=== PATIENT | male | born 1970 | race Two or more races ===

== ENCOUNTER 2024-10-26 11:53 | Inpatient (IN) | payer OTHER ==
[~2024-10-26] VITALS: Ht 180.3 cm; Wt 108.7 kg
--- NOTE | 2024-10-26 12:17 | ED.PDOC ---
GI ASSESSMENT HPI Comments PMHx: HTN, HLD PSHx: Denies. Social hx: Ex smoker. No current alcohol, tobacco, or illicit drug use. Meds: Amlodipine Allergies: NKDA. Vitals T: 98.0F. RR: 18 HR: 120. BP: 212/147. O2: 96 on RA. Pt states his BP is always elevated. Young HPI: Poor Historian. 54-year-old male presents with four day history of epigastric pain nonradiating and left lower quadrant pain nonradiating. Patient has associated nausea and increasing urinary frequency. No alleviating or precipitating factors. Past Medcial History: Past Surgical History: Upper and lower endoscopies. REVIEW OF SYSTEMS: CONSTITUTIONAL: Denies acute: fever, diaphoresis, chills, HEAD: Denies acute: headache, photophobia Eyes: Denies acute: Double vision, vision loss, eye pain, eye discharge. EARS: Denies acute: tinnitus, hearing loss, ear discharge, ear pain, THROAT: Denies acute: sore throat, swelling, difficulty swallowing , pain with swallowing, change in voice. NECK: Denies acute: neck pain, neck swelling, stiff neck. HEART: Denies acute : chest pain, palpitations, LUNGS: Denies acute: SOB, wheezing, cough, hemoptysis ABDOMEN: Denies acute: Vomiting, diarrhea, melena , hematemesis, hematochezia SKIN: Denies acute: rash, redness, lesions, itchiness. EXTREMITIES: Denies acute: calf pain, numbness, tingling, weakness, denies pain in extremity. Denies acute: Low back pain. Neuro: Denies acute: focal neurological deficit, motor or sensory focal neurological deficit, tremors, seizure like activity, confusion, dizziness, change in mental status, loss of bowel or bladder function, cauda equina like symptoms. : Denies acute: dysuria, hematuria, flank pain, PSYCH: Denies acute: hallucination, suicidal ideation, homicidal ideation. PHYSICAL EXAM: General: no acute distress, awake and alert. Head: normocephalic, atraumatic. Neck: supple, trachea is midline, no swelling. Throat: Normal phonation. Eyes:, no erythema, no purulent discharge, no proptosis, no icterus. Heart: regular tachycardia, no significant murmur appreciated. Lungs: no apparent respiratory distress, Able to speak in full sentences. No wheezing, no rhonchi, no crackles. No stridors Clear to auscultation bilaterally. Abdomen: Epigastric and left lower quadrant tender to palpation, non distended, soft, no guarding, no rebound, + bowel sounds. Neuro: Awake, Alert, oriented to name, self, situation, follows commands GCS=15. Speech is normal. Skin: no petechia, no purpura, no cyanosis, non-pale, not jaundice. Lower extremities: --no - Pitting edema no deformity, no focal swelling, no calf TTP. Makes eye contact. moves all four extremities. Face: no apparent facial droop. Ambulating in the ED independently. Time Seen by MD: 12:14 Primary Care Provider: ANA Reviewed Notes: Nurses Notes, Medications, Allergies Allergies: Coded Allergies: NO KNOWN ALLERGIES (Unverified , 10/26/24) Information Source: Patient Mode of Arrival: Ambulatory Timing: Weeks Duration: Intermittent Quality: Sharp Vomitus: None Stool: Normal Severity: Mild Recent: None Recent Hx of: None Pain Location: Diffuse Modifying Factors: Nothing Associated sign and symptoms: Nausea, Abdominal Pain, Other Past Medical History PAST MEDICAL HISTORY: High Lipids, HTN Surgical History: Denies all surgeries Family History Family History: Reviewed,noncontributory to illness Social History Smoker: Quit Less Than 1 Year, Cigarettes Alcohol: Denies ETOH Use Drugs: Denies Drug Use Lives In: Home Was a procedure done? Was a procedure done?: No GI differential Dx Differential Diagnosis: Other (DDX include but not limited to diverticulitis, colitis, gastroenteritis, acute abdomen, SBO, enteritis, constipation, volvulus, appendicitis, Gallbladder disease, choledocolithiasis, ascending cholangitis, pancreatitis, intraAbdominal mass/neoplasm, hepatitis, UTI, pylonephritis, kidney stone, aneurysm, dissection, Inflammatory bowel disease, gastroparesis, ischemic bowel.) X-Ray, Labs, Meds, VS Vital Signs Date Time Temp Pulse Resp B/P (MAP) Pulse Ox O2 Delivery O2 Flow Rate FiO2 10/26/24 16:02 110 10/26/24 16:00 98.3 95 17 191/120 (143) 96 98.3 10/26/24 12:53 118 20 138/118 (125) 96 10/26/24 12:48 114 16 92 Room Air* 0 21 10/26/24 12:30 98.0 120 18 212/147 (168) 96 Lab Test 10/26/24 16:08 10/26/24 15:59 10/26/24 15:27 10/26/24 14:10 Range/Units Serum Osmolality 304 H 278-298 mOsm/kg Phosphorus Level 3.2 2.4-5.1 mg/dL Magnesium Level 2.0 1.6-2.6 mg/dL Beta-Hydroxybutyric Acid 3.441 H < 0.4 mmol/L POC Glucose 349 H 342 H 70-106 mg/dl Urine Color Light-yellow Yellow Urine Clarity Clear Clear Urine pH 5.0 5.0-9.0 Urine Specific [place] 1.033 1.001-1.035 Urine Protein 1+ H Negative Urine Ketones 3+ H Negative Urine Blood Trace H Negative /uL Urine Nitrite Negative Negative Urine Bilirubin Negative Negative Urine Urobilinogen Normal Negative mg/dL Urine Leukocyte Esterase Negative Negative /uL Urine RBC <1 0 - 3 /hpf Urine WBC 1 0 - 3 /hpf Urine Squamous Epithelial Cells None seen <5 /hpf Urine Bacteria None seen None Seen /hpf Urine Hyaline Casts Few 0 - 2 /lpf Urine Glucose 4+ H Normal mg/dL Urine Opiates Screen Neg NEGATIVE Urine Fentanyl Screen Neg NEGATIVE Urine Barbiturates Screen Neg NEGATIVE Urine Phencyclidine Screen Neg NEGATIVE Urine Amphetamines Screen Neg NEGATIVE Urine Benzodiazepines Screen Neg NEGATIVE Urine Cocaine Screen Neg NEGATIVE Urine Cannabinoids Screen Pos NEGATIVE Test 10/26/24 12:52 10/26/24 12:42 10/26/24 12:26 10/26/24 12:25 Range/Units White Blood Count 14.8 H 4.4-10.8 10^3/uL Red Blood Count 5.88 4.5-5.90 10^6/uL Hemoglobin 16.6 13.5-17.5 g/dL Hematocrit 49.2 41.0-53.0 % Mean Corpuscular Volume 83.8 80.0-100.0 fL Mean Corpuscular Hemoglobin 28.3 28.0-32.0 pg Mean Corpuscular Hemoglobin Concent 33.8 32.0-36.0 g/dL Red Cell Distribution Width 14.4 H 11.8-14.3 % Platelet Count 382 140-450 10^3/uL Mean Platelet Volume 8.9 6.9-10.8 fL Neutrophils (%) (Auto) 71.9 37.0-80.0 % Lymphocytes (%) (Auto) 20.8 10.0-50.0 % Monocytes (%) (Auto) 5.9 0.0-12.0 % Eosinophils (%) (Auto) 0.8 0.0-7.0 % Basophils (%) (Auto) 0.6 0.0-2.0 % Neutrophils # (Auto) 10.7 H 1.6-8.6 10 ^3/uL Lymphocytes # (Auto) 3.1 0.4-5.4 10 ^3/uL Monocytes # (Auto) 0.9 0-1.3 10 ^3/uL Eosinophils # (Auto) 0.1 0-0.8 10 ^3/uL Basophils # (Auto) 0.1 0-0.2 10 ^3/uL Nucleated Red Blood Cells 0.1 % Sodium Level 132 L 136-145 mmol/L Potassium Level 5.2 H 3.5-5.1 mmol/L Chloride Level 100 98-107 mmol/L Carbon Dioxide Level 15 L 20-31 mmol/L Anion Gap 17 H 5-15 Blood Urea Nitrogen 27 H 9-23 mg/dL Creatinine 1.47 H 0.700-1.30 mg/dL Glomerular Filtration Rate Calc 56 >90 mL/min BUN/Creatinine Ratio 18.4 10.0-20.0 Serum Glucose 441 *H 74-106 mg/dL Lactic Acid Level 1.8 0.4-2.0 mmol/L Calcium Level 10.4 8.7-10.4 mg/dL Magnesium Level 2.0 1.6-2.6 mg/dL Total Bilirubin 0.8 0.2-1.0 mg/dL Aspartate Amino Transferase (AST) 19 13-40 U/L Alanine Aminotransferase (ALT) 36 7-40 U/L Alkaline Phosphatase 98 46-116 U/L Troponin I High Sensitivity 8 </=54 ng/L Total Protein 7.6 5.7-8.2 g/dL Albumin 5.0 H 3.2-4.8 g/dL Lipase 39 12-53 U/L Beta-Hydroxybutyric Acid 4.467 H < 0.4 mmol/L Blood Gas Specimen Type Arterial Blood Gas Sample Site Right radial Blood Gas Patient Temperature 37.0 Arterial Blood Date Drawn [id number] Arterial Blood pH 7.388 7.350-7.450 Arterial Blood Partial Pressure CO2 22.3 L 35.0-48.0 mmHg Arterial Blood Partial Pressure O2 86.9 83.0-108.0 mmHg Arterial Blood HCO3 13.1 L 21.0-28.0 mmol/L Arterial Blood Oxygen Saturation 96.4 94.0-98.0 % Arterial Blood Base Excess -9.1 L -2.0-3.0 mmol/L Arterial Blood Oxyhemoglobin 95.5 94.0-98.0 % Arterial Blood Carboxyhemoglobin 0.3 L 0.5-1.5 % Arterial Blood Methemoglobin 0.6 0.0-1.5 % Heath Test Yes Blood Gas Total Hemoglobin 17.70 H 13.5-17.5 g/dL Blood Gas Modality Room air FiO2 % 21.0 POC Glucose 483 *H 509 *H 70-106 mg/dl Current Medications Medications (Trade) Dose Ordered Sig/Naga Route Start Time Stop Time Status Last Admin Sodium Chloride 1,000 ml @ 1,000 mls/hr Q1H ONCE IV 10/26/24 12:30 10/26/24 13:30 DC 10/26/24 12:30 Ondansetron HCl (Zofran) 8 mg ONCE ONCE IV 10/26/24 12:30 10/26/24 13:26 DC 10/26/24 12:30 Sodium Chloride 1,000 ml @ 1,000 mls/hr Q1H ONCE IV 10/26/24 14:00 10/26/24 15:14 DC 10/26/24 14:00 Insulin Human Regular (InsuLIN R) 5 units ONCE ONCE IV 10/26/24 14:00 10/26/24 15:14 DC 10/26/24 15:28 Sodium Chloride 1,000 ml @ 500 mls/hr Q2H IV 10/26/24 15:15 10/26/24 19:14 DC 10/26/24 17:19 Insulin Human (Reg)/Sodium Chloride 100 ml @ 0.5 mls/hr Q24H IV 10/26/24 15:15 10/26/24 16:00 Sodium Bicarbonate 50 ml ONCE ONCE IV 10/26/24 15:15 10/26/24 15:16 DC 10/26/24 15:[address] [address] Ph: [phone] DIAGNOSTIC IMAGING Diagnostic Imaging Report : [id number] Signed PATIENT: AMINAH CASTILLO ACCT: [id number] UNIT: [id number] : 1970 LOC: ER ROOM / BED: / AGE / SEX: 54 / M ADM STATUS: REG ER SERVICE 1217 ORDERING PHYSICIAN: SRINATH SERRANO DO PROCEDURE(s): ABPL - CT AB PEL WO CON-NO ORAL OR IV REASON: epig pain, N/ LLQ pain ORDER NUMBER(s): [id number], ACCESSION NUMBER(s): [id number] CT abdomen and pelvis without contrast INDICATION: epig pain, N/ LLQ pain TECHNIQUE: Serial axial images were performed through the abdomen and pelvis and then reformatted in the sagittal and coronal plane. All CT scans at this medical facility are performed using dose modulation techniques as appropriate to a performed exam including the following: Automated exposure control was utilized; adjustment of the MA and/or KvP according to patient size; and use of iterative reconstruction technique. FINDINGS: Lung bases are clear. Liver and spleen are normal in size without focal mass. 3 mm nonobstructive left renal calculus. No masses or enlargement of the adrenal glands or pancreas. No biliary dilatation. No gallstones. No distention of bowel loops to suggest mechanical obstruction of bowel. There is sigmoid diverticulosis without diverticulitis. The appendix is normal in appearance. No free fluid. There is calcification in the guidry of the abdominal aorta and iliac arteries Within the pelvis, bladder is smooth walled without stones. No abnormal masses or fluid collections. No hernia sacs. IMPRESSION: 1. 3 mm nonobstructive left renal calculus. 2. Sigmoid diverticulosis without signs of diverticulitis. No evidence of obstruction. Computed Tomographic Radiation Dosimetry Report: Total CTDI vol = 20 mGy Total DLP = 1047 mGy-cm Low dose protocols were performed. ATED BY: ARIAS MCCLAIN MD DICTATED DATE/TIME: 10/26/241318 SIGNED BY: ARIAS MCCLAIN MD SIGNED DATE/TIME: 10/26/241318 CC: Time of 1ST Reevaluation: 12:44 Reevaluation 1ST: Unchanged Time of 2ND Reevaluation: 21:14 Reevaluation 2ND: Improved Patient Education/Counseling: Diagnosis, Treatment Family Education/Counseling: No Family Present Comments Patient presented with the above HPI.---abdominal pain---workup was initiated. patient was found with the above mentioned diagnosis. Patient was given: DKA protocol initiated. Labetalol/nitroglycerin for blood pressure control. Patient ED course and VS have been stabilized. Patient has been reassessed in the ED and remained in a stable condition. Pertinent incidental findings were discussed with the patient and/or family. Patient/family voices understanding and is agreeable with plan. Patient has been observed in the ED adequate length of time to insure improvement/stability. patient was admitted to the medicine team for further evaluation and treatment of their presentation. All the reports of any imaging studies that were ordered by myself were reviewed by myself. Departure 1 Departure Time of Disposition: 15:02 Impression: Primary Impression: DKA (diabetic ketoacidosis) Additional Impressions: Hypertension Abdominal pain Disposition: ADMITTED INPATIENT Admit to: [facility] Condition: Guarded Discharged With: Self Critical Care Note Critical Care Time?: Yes (45 min-critical care time only) Heart Score Heart Score: Heart Score Response (Comments) Value History N/A 0 EKG N/A 0 Age N/A 0 Risk Factors N/A 0 Troponin N/A 0 Total 0 I personally scribed for SRINATH SERRANO DO ([email or web address]) on 10/26/24 at 12:17. Electronically submitted by Sona Gerardo ([employer]). I personally scribed for SRINATH SERRANO DO ([email or web address]) on 10/26/24 at 12:24. E lectronically submitted by Sona Gerardo ([employer]). I personally scribed for SRINATH SERRANO DO ([email or web address]) on 10/26/24 at 13:19. Electronically submitted by Sona Gerardo ([employer]). I personally scribed for SRINATH SERRANO DO ([email or web address]) on 10/26/24 at 13:21. Electronically submitted by Sona Gerardo ([employer]). I personally scribed for SRINATH SERRANO DO ([email or web address]) on 10/26/24 at 13:59. Electronically submitted by Sona Gerardo ([email or web address]). SRINATH SERRANO DO Oct 26, 2024 12:17
[2024-10-26] MEDS: SODIUM CHLORIDE 0.9% 1,000 ML IV ONE ×2 (12:30→14:00)
[2024-10-26] MEDS: ONDANSETRON HCL 4 MG/2 ML VIAL IV ONE (12:30)
[2024-10-26 12:47] LABS: Base Excess -9.1 mmol/L (-2.0-3.0)
[2024-10-26 12:48] VITALS: PULSE 114; RESP 16; O2SAT 92
[2024-10-26] MEDS: ONDANSETRON HCL 4 MG/2 ML VIAL ONE ×2 (13:04)
[2024-10-26 13:13] LABS: Basophils # (auto) 0.1 10 ^3/uL (0-0.2); Basophils % (auto) 0.6 % (0.0-2.0); Eosinophils # (auto) 0.1 10 ^3/uL (0-0.8); Eosinophils % (auto) 0.8 % (0.0-7.0); Hematocrit 49.2 % (41.0-53.0); Hemoglobin 16.6 g/dL (13.5-17.5); Lymphocytes # (auto) 3.1 10 ^3/uL (0.4-5.4); Lymphocytes % (auto) 20.8 % (10.0-50.0); Mean Corpuscular Hemoglobin 28.3 pg (28.0-32.0); Mean Corpuscular Hgb Conc. 33.8 g/dL (32.0-36.0); Mean Corpuscular Volume 83.8 fL (80.0-100.0); Monocytes # (auto) 0.9 10 ^3/uL (0-1.3); Monocytes % (auto) 5.9 % (0.0-12.0); Neutrophils # (auto) 10.7 10 ^3/uL (1.6-8.6); Neutrophils % (auto) 71.9 % (37.0-80.0); Nucleated Red Blood Cells % 0.1 %; Platelet Count (auto) 382 10^3/uL (140-450); Red Blood Cells 5.88 10^6/uL (4.5-5.90); Red Cell Distribution Width 14.4 % (11.8-14.3); White Blood Cell 14.8 10^3/uL (4.4-10.8)
--- NOTE | 2024-10-26 13:21 | DVH ---
CT abdomen and pelvis without contrast INDICATION: epig pain, N/ LLQ pain TECHNIQUE: Serial axial images were performed through the abdomen and pelvis and then reformatted in the sagittal and coronal plane. All CT scans at this medical facility are performed using dose modulation techniques as appropriate t o a performed exam including the following: Automated exposure control was utilized; adjustment of the MA and/or KvP according to patient size; a nd use of iterative reconstruction technique. FINDINGS: Lung bases are clear. Liver and spleen are normal in size without focal mass. 3 mm nonobstructive left renal calculus. No masses or enlargement of the adrenal glands or pancreas. No biliary dilatation. No gallstones. No distention of bowel loops to suggest mechanical obstruction of bowel. There is sigmoid diverticulo sis without diverticulitis. The appendix is normal in appearance. No free fluid. There is calcification in the guidry of the abdominal aorta and iliac arteries Within the pelvis, bladder is smooth walled without stones. No abnormal masses or fluid collections. No hernia sacs. IMPRESSION: 1. 3 mm nonobstructive left renal calculus. 2. Sigmoid diverticulosis without signs of diverticulitis. No evidence of obstruction. Computed Tomographic Radiation Dosimetry Report: Total CTDI vol = 20 mGy Total DLP = 1047 mGy-cm Low dose protocols were performed.
[2024-10-26 13:31] LABS: Alanine Aminotransferase 36 U/L (7-40); Alkaline Phosphatase 98 U/L (46-116); Anion Gap 17 (5-15); Aspartate Aminotransferase 19 U/L (13-40); BUN/Creatinine Ratio 18.4 (10.0-20.0); Bilirubin, Total 0.8 mg/dL (0.2-1.0); Blood Urea Nitrogen 27 mg/dL (9-23); Calcium 10.4 mg/dL (8.7-10.4); Carbon Dioxide 15 mmol/L (20-31); Chloride 100 mmol/L (98-107); Lipase 39 U/L (12-53); Potassium 5.2 mmol/L (3.5-5.1); Sodium 132 mmol/L (136-145); Total Protein 7.6 g/dL (5.7-8.2)
[2024-10-26 14:12] LABS: Urine Bacteria None Seen /hpf (None Seen)
[2024-10-26 14:12] LABS: Glucose 441 mg/dL (74-106)
[2024-10-26 14:31] LABS: Urine Blood TRACE /uL (Negative); Urine Clarity Clear (Clear); Urine Color Light-Yellow (Yellow); Urine Hyaline Cast FEW /lpf (0 - 2); Urine Protein, UAD 1+ (Negative); Urine Specific Gravity 1.033 (1.001-1.035); Urine Urobilinogen Normal (Negative); Urine WBC 1 /hpf (0 - 3)
[2024-10-26 14:36] LABS: Amphetamine Screen, Urine Neg (NEGATIVE); Benzodiazephine Screen, Urine Neg (NEGATIVE)
[2024-10-26 14:37] LABS: Barbiturate Scree,Urine Neg (NEGATIVE); Cocaine Screen, Urine Neg (NEGATIVE)
[2024-10-26 14:38] LABS: Cannabinoid Screen, Urine Pos (NEGATIVE); Opiate Scree,Urine Neg (NEGATIVE); Phencyclidine Screen, Urine Neg (NEGATIVE)
[2024-10-26] MEDS: SODIUM BICARB 8.4% 50Meq/50ml SYR Vial IV ONE (15:15)
[2024-10-26] MEDS: SODIUM CHLORIDE 0.9% 1,000 ML IV SCH ×3 (15:15→19:20)
[2024-10-26] MEDS ORDERED: DEXTROSE (50%) 50ML SYRG IV PRN (15:15)
[2024-10-26] MEDS: InsuLIN REG 1unit/0.01ml Soln (100units/ml) IV ONE (15:28)
[2024-10-26] MEDS: NITROGLYCERIN 0.4 MG SL TAB SL ONE (15:28)
[2024-10-26] MEDS: INSULIN DRIP 100 UNIT/100ML 100 ML IV SCH (16:00)
[2024-10-26] MEDS ORDERED: DOCUSATE SOD 100 MG CAP PO PRN (16:30)
[2024-10-26] MEDS ORDERED: MORPHINE SULFATE INJ 2 MG/ml SYRG IV PRN (16:30)
[2024-10-26] MEDS ORDERED: ACETAMINOPHEN 325 MG TAB PO PRN (16:30)
[2024-10-26] MEDS ORDERED: MAALOX PLUS or MAALOX 30 ML PO PRN (16:30)
[2024-10-26] MEDS ORDERED: HYDROcodone-ACET 5/325MG TAB PO PRN (16:30)
[2024-10-26] MEDS ORDERED: LORazepam 0.5 MG TAB PO PRN (16:30)
[2024-10-26] MEDS ORDERED: TEMAZEPAM 15 MG CAP PO PRN (16:30)
--- NOTE | 2024-10-26 16:32 | DVHHP2 ---
History of Present Illness Reason for Visit: Abdominal pain History of Present Illness 54-year-old obese patient with a past medical history stated unconfirmed patient had no complaints and stated that the last few days he has been having severe abdominal pain no stated history of diabetes but came into the ED for evaluation of continued multiple symptoms including weakness blurry vision excessive thirst high frequency of urination and complaints of severe abdominal pain that is been going on persistently patient states no history of knowing that he has any medical problems other than today as of now during evaluation his glucose was greater than 500 patient will be evaluated and admitted and managed for acute new onset diabetes with noted anion gap DKA Endocrine: Diabetes Review of Systems Constitutional: Yes: Weakness; No: Fever, Chills, Sweats, Malaise, Other Eyes: No: Pain, Vision change, Conjunctivae inflammation, Eyelid inflammation, Other, Redness ENT: No: Ear pain, Ear discharge, Nose pain, Nose discharge, Nose congestion, Mouth pain, Mouth swelling, Throat pain, Throat swelling, Other Respiratory: No: Cough, Dry, Shortness of breath, SOB with excertion, Wheezing, Hemoptysis, Pleuritic Pain, Sputum, Wheezing, Other Cardiovascular: Palpitations; No: Chest Pain, Orthopnea, Paroxysmal Noc. Dyspnea, Edema, Lt Headedness, Other Gastrointestinal: Nausea, Vomiting, Abdominal Pain; No: Diarrhea, Constipation, Melena, Hematochezia, Other Genitourinary: No Dysuria, No Frequency, No Incontinence, No Hematuria, No Retention, No Other Musculoskeletal: No: other, neck pain, shoulder pain, arm pain, back pain, hand pain, leg pain, foot pain Skin: No: Rash, Lesions, Jaundice, Bruising, Other Neurological: Weakness; No: Numbness, Incoordination, Change in speech, Confusion, Seizures, Other Allergies: Coded Allergies: NO KNOWN ALLERGIES (Unverified , 10/26/24) Medications Current Medications Medications Dose Ordered Sig/Naga Route Start Time Stop Time Status Last Admin Dose Admin Sodium Chloride 1,000 ml @ 500 mls/hr Q2H IV 10/26/24 15:15 10/26/24 19:14 10/26/24 15:15 500 MLS/HR Sodium Chloride 1,000 ml @ 250 mls/hr Q4H IV 10/26/24 19:15 10/26/24 21:14 Insulin Human (Reg)/Sodium Chloride 100 ml @ 0.5 mls/hr Q24H IV 10/26/24 15:15 10/26/24 16:00 4 MLS/HR Dextrose 50 ml UD PRN IV 10/26/24 15:15 Diagnostic Test (Pha) 1 strip Q90MIN 10/26/24 16:30 Exam Vital Signs Vital Signs Date Time Temp Pulse Resp B/P (MAP) Pulse Ox O2 Delivery O2 Flow Rate FiO2 10/26/24 12:53 118 20 138/118 (125) 96 10/26/24 12:48 Room Air* 0 21 10/26/24 12:30 98.0 General Appearance: Alert, Oriented X3, moderate distress HEENT: Atraumatic, PERRLA Respiratory: Clear to auscultation, Normal air movement Cardiovascular: Regular rate, Normal S1, Normal S2 Abdominal: Normal bowel sounds, Soft, No tenderness Extremities: No clubbing, No cyanosis, No edema Skin: No breakdown, No significant lesion Neuro: Normal gait, Normal speech Psych/Mental Status: Mood NL Labs/Xrays Labs Test 10/26/24 16:08 10/26/24 15:59 10/26/24 14:10 10/26/24 12:52 Range/Units POC Glucose 349 H 70-106 mg/dl Urine Color Light-yellow Yellow Urine Clarity Clear Clear Urine pH 5.0 5.0-9.0 Urine Specific [place] 1.033 1.001-1.035 Urine Protein 1+ H Negative Urine Ketones 3+ H Negative Urine Blood Trace H Negative /uL Urine Nitrite Negative Negative Urine Bilirubin Negative Negative Urine Urobilinogen Normal Negative mg/dL Urine Leukocyte Esterase Negative Negative /uL Urine RBC <1 0 - 3 /hpf Urine WBC 1 0 - 3 /hpf Urine Squamous Epithelial Cells None seen <5 /hpf Urine Bacteria None seen None Seen /hpf Urine Hyaline Casts Few 0 - 2 /lpf Urine Glucose 4+ H Normal mg/dL Urine Opiates Screen Neg NEGATIVE Urine Fentanyl Screen Neg NEGATIVE Urine Barbiturates Screen Neg NEGATIVE Urine Phencyclidine Screen Neg NEGATIVE Urine Amphetamines Screen Neg NEGATIVE Urine Benzodiazepines Screen Neg NEGATIVE Urine Cocaine Screen Neg NEGATIVE Urine Cannabinoids Screen Pos NEGATIVE White Blood Count 14.8 H 4.4-10.8 10^3/uL Red Blood Count 5.88 4.5-5.90 10^6/uL Hemoglobin 16.6 13.5-17.5 g/dL Hematocrit 49.2 41.0-53.0 % Mean Corpuscular Volume 83.8 80.0-100.0 fL Mean Corpuscular Hemoglobin 28.3 28.0-32.0 pg Mean Corpuscular Hemoglobin Concent 33.8 32.0-36.0 g/dL Red Cell Distribution Width 14.4 H 11.8-14.3 % Platelet Count 382 140-450 10^3/uL Mean Platelet Volume 8.9 6.9-10.8 fL Neutrophils (%) (Auto) 71.9 37.0-80.0 % Lymphocytes (%) (Auto) 20.8 10.0-50.0 % Monocytes (%) (Auto) 5.9 0.0-12.0 % Eosinophils (%) (Auto) 0.8 0.0-7.0 % Basophils (%) (Auto) 0.6 0.0-2.0 % Neutrophils # (Auto) 10.7 H 1.6-8.6 10 ^3/uL Lymphocytes # (Auto) 3.1 0.4-5.4 10 ^3/uL Monocytes # (Auto) 0.9 0-1.3 10 ^3/uL Eosinophils # (Auto) 0.1 0-0.8 10 ^3/uL Basophils # (Auto) 0.1 0-0.2 10 ^3/uL Nucleated Red Blood Cells 0.1 % Sodium Level 132 L 136-145 mmol/L Potassium Level 5.2 H 3.5-5.1 mmol/L Chloride Level 100 98-107 mmol/L Carbon Dioxide Level 15 L 20-31 mmol/L Anion Gap 17 H 5-15 Blood Urea Nitrogen 27 H 9-23 mg/dL Creatinine 1.47 H 0.700-1.30 mg/dL Glomerular Filtration Rate Calc 56 >90 mL/min BUN/Creatinine Ratio 18.4 10.0-20.0 Serum Glucose 441 *H 74-106 mg/dL Lactic Acid Level 1.8 0.4-2.0 mmol/L Calcium Level 10.4 8.7-10.4 mg/dL Total Bilirubin 0.8 0.2-1.0 mg/dL Aspartate Amino Transferase (AST) 19 13-40 U/L Alanine Aminotransferase (ALT) 36 7-40 U/L Alkaline Phosphatase 98 46-116 U/L Troponin I High Sensitivity 8 </=54 ng/L Total Protein 7.6 5.7-8.2 g/dL Albumin 5.0 H 3.2-4.8 g/dL Lipase 39 12-53 U/L Test 10/26/24 12:42 Range/Units Blood Gas Specimen Type Arterial Blood Gas Sample Site Right radial Blood Gas Patient Temperature 37.0 Arterial Blood Date Drawn [id number] Arterial Blood pH 7.388 7.350-7.450 Arterial Blood Partial Pressure CO2 22.3 L 35.0-48.0 mmHg Arterial Blood Partial Pressure O2 86.9 83.0-108.0 mmHg Arterial Blood HCO3 13.1 L 21.0-28.0 mmol/L Arterial Blood Oxygen Saturation 96.4 94.0-98.0 % Arterial Blood Base Excess -9.1 L -2.0-3.0 mmol/L Arterial Blood Oxyhemoglobin 95.5 94.0-98.0 % Arterial Blood Carboxyhemoglobin 0.3 L 0.5-1.5 % Arterial Blood Methemoglobin 0.6 0.0-1.5 % Heath Test Yes Blood Gas Total Hemoglobin 17.70 H 13.5-17.5 g/dL Blood Gas Modality Room air FiO2 % 21.0 Assessment/Plan Assessment/Plan Admit to step-down unit DKA Patient with new onset diabetes Complaints of weakness Hyperglycemia glucose greater than 500 Anion gap positive Patient started on insulin sliding scale insulin algorithmic protocol and drip Acutely monitor labs with plans for anion gap closure Convert to long-acting and basal insulin once gap closed Aggressive IV hydration Flush system No acute signs of infection noted at this point in time We will follow up with a UA no acute signs of bacteria noted no acute signs of respiratory infection noted CCT 34 minutes Plan discussed with: Patient My Orders Orders - DELFINO PRECIADO MD Procedure Category Date Status Time Admit ADMIT 10/26/24 Verified 16:23 Code Status CODE 10/26/24 Verified 16:23 Vital Signs [facility] 10/26/24 Verified 16:23 Review Orders With [place] 10/26/24 Verified Adm 16:23 Consistent DIET 10/26/24 Verified Carb(Ccho)Diabetes Dinner Sodium Chloride 0.9% PHA 10/26/24 Verified 16:30 Lorazepam Tablet PHA 10/26/24 Verified (Ativan Tablet) 16:30 Alum & Mag PHA 10/26/24 Verified Hydrox-Simethicone 16:30 Docusate Sodium PHA 10/26/24 Verified Capsule (Colace 16:30 Acetaminophen Tablet PHA 10/26/24 Verified (Tylenol Tablet) 16:30 Temazepam (Restoril) PHA 10/26/24 Verified 16:30 Notify Md Of Changes [facility] 10/26/24 Verified From Base 16:23 Advance Directive [place] 10/26/24 Verified 16:23 Basic Metabolic Panel LAB 10/27/24 Verified 04:00 Complete Blood Count LAB 10/27/24 Verified 04:00 Patient Condition ORDERS 10/26/24 Verified 16:23 Allergies [facility] 10/26/24 Verified 16:23 Hydrocodone-Acet PHA 10/26/24 Verified 5/325mg Tab ([place] 16:30 Ondansetron Hcl [facility] 10/26/24 Verified (Zofran) 16:30 Morphine 2mg Iv Q4hprn PHA 10/26/24 Verified 16:30 Notify Md Of Changes [facility] 10/26/24 Verified From Base 16:23 [employer]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
[2024-10-26] MEDS: ACCU-CHEK COMFORT CURVE STRIP VI SCH (16:36)
[2024-10-26 16:59] LABS: Phosphorus 3.2 mg/dL (2.4-5.1)
[2024-10-26 17:09] VITALS: PULSE 77; RESP 17; O2SAT 94
[2024-10-26] MEDS: LABETALOL HCL 20 MG/4 ML VL IV ONE ×2 (17:16)
[2024-10-26] MEDS: ONDANSETRON HCL 4 MG/2 ML VIAL IV PRN (17:21)
[2024-10-27 03:45] LABS: Potassium 3.5 mmol/L (3.5-5.1); Sodium 139 mmol/L (136-145)
[2024-10-27 03:46] LABS: Anion Gap 7 (5-15); Calcium 9.2 mg/dL (8.7-10.4); Carbon Dioxide 22 mmol/L (20-31)
[2024-10-27 03:51] LABS: BUN/Creatinine Ratio 18.8 (10.0-20.0); Blood Urea Nitrogen 18 mg/dL (9-23)
[2024-10-27 04:22] LABS: Chloride 110 mmol/L (98-107); Glucose 164 mg/dL (74-106)
[2024-10-27 04:26] LABS: Basophils # (auto) 0.1 10 ^3/uL (0-0.2); Basophils % (auto) 1.1 % (0.0-2.0); Eosinophils # (auto) 0.3 10 ^3/uL (0-0.8); Eosinophils % (auto) 2.7 % (0.0-7.0); Hematocrit 42.8 % (41.0-53.0); Hemoglobin 14.5 g/dL (13.5-17.5); Lymphocytes # (auto) 2.7 10 ^3/uL (0.4-5.4); Lymphocytes % (auto) 26.6 % (10.0-50.0); Mean Corpuscular Hemoglobin 28.2 pg (28.0-32.0); Monocytes # (auto) 0.7 10 ^3/uL (0-1.3); Neutrophils # (auto) 6.4 10 ^3/uL (1.6-8.6); Neutrophils % (auto) 62.6 % (37.0-80.0); Nucleated Red Blood Cells % 0.1 %; Platelet Count (auto) 290 10^3/uL (140-450); Red Blood Cells 5.16 10^6/uL (4.5-5.90); White Blood Cell 10.3 10^3/uL (4.4-10.8)
[2024-10-27 07:40] VITALS: PULSE 65; RESP 12; O2SAT 96
[2024-10-27] MEDS ORDERED: DEXTROSE (50%) 50ML SYRG IV PRN (12:45)
[2024-10-27 13:23] LABS: Triglycerides 169 mg/dL (< 150)
[2024-10-27 13:24] LABS: LDL Cholesterol 161 mg/dL (< 100)
[2024-10-27 13:25] LABS: Cholesterol 217 mg/dL (< 200); HDL Cholesterol 36 mg/dL (40-59)
[2024-10-27] MEDS: FAMOTIDINE 20 MG TAB PO ONE (13:32)
[2024-10-27] MEDS: LOSARTAN POTASSIUM 25 MG TAB PO ONE (13:32)
[2024-10-27] MEDS: InsuLIN REG 1unit/0.01ml Soln (100units/ml) SC SCH (17:00)
[2024-10-27] MEDS: ACCU-CHEK COMFORT CURVE STRIP VI SCH (17:00)
[2024-10-27 17:17] VITALS: BP 134/79; PULSE 116; RESP 20; TEMP 99.5; O2SAT 93
[2024-10-27 17:24] VITALS: BP 177/104; PULSE 74; RESP 20; TEMP 98.3; O2SAT 93
[2024-10-27] MEDS ORDERED: hydrALAZINE HCL 20 MG/ML VL IV PRN (19:00)
[2024-10-27 20:45] VITALS: BP 121/92; PULSE 89; RESP 19; TEMP 90; O2SAT 93
[2024-10-27 21:21] VITALS: BP 121/92; PULSE 89; RESP 18; TEMP 98.6; O2SAT 95
--- NOTE | 2024-10-27 21:53 | DVHPN2 ---
Assessment/Plan Assessment/Plan Progress note Subjective 54 yo M admitted for new onset diabetes. Objective Physical exam Alert, oriented x3 Obese PERRLA No JVD Clear breath sounds bilaterally S1-S2 regular rate and rhythm no murmur Abdomen soft nontender, no organomegaly Moving all four extremities No lower extremity edema Lab hyperglycemia ketonuria low bicarb elevated anion gap normal pH A1C 10 hyperlipidemia high potassium EKG NSR Imaging CTAP with diverticulitis Assessment and plan Not in DKA New onset DM likely type 2 Metabolic syndrome Obesity Hypertension Starvation ketosis hyperkalemia resolved start insulin basal bolus start high intensity statin, high ASCVD score resume amlodipine, start ARB avoid IV anti hypertensive 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 will need insulin, glucometer, po meds on discharge will need pulm referral for sleep study on discharge Replete electrolytes Diet diabetic DVT prophylaxis ambulatory 15 minutes spent with education regarding lifestyle modification Plan discussed with: Patient My Orders Orders - IMMANUEL GHOTRA MD Procedure Category Date Status Time Amlodipine Tablet PHA 10/28/24 In Process (Norvasc Tablet) 10:00 Losartan Tablet PHA 10/28/24 In Process (Cozaar Tablet) 10:00 Famotidine Tablet PHA 10/28/24 In Process (Pepcid Tablet) 10:00 Insulin Lantus PHA 10/27/24 In Process (Glargine) (Lantus) 22:00 Glucose Blood PHA 10/27/24 In Process (Accu-Chek Comfort 17:00 Insulin R (Human) PHA 10/27/24 In Process (Insulin R) 17:00 Dextrose 50% Syringe PHA 10/27/24 In Process 12:45 Transfer Orders XFER 10/27/24 Transmitted 12:37 Date of Service: Oct 27, 2024 Billing Provider: IMMANUEL GHOTRA MD Common Visit Codes: [id number] INP/OBS CARE(HIGH) Secondary Visit Codes: [id number] COUNSELING IND IMMANUEL GHOTRA MD Oct 27, 2024 21:53
[2024-10-27] MEDS ORDERED: INSULIN LANTUS (GLARGINE) 1 /0.01ml (100units/ml) SC SCH (22:00)
[2024-10-27 22:36] LABS: Chloride 106 mmol/L (98-107); Potassium 4.1 mmol/L (3.5-5.1); Sodium 135 mmol/L (136-145)
[2024-10-27 22:37] LABS: Anion Gap 7 (5-15); Carbon Dioxide 22 mmol/L (20-31)
[2024-10-27 22:38] LABS: Calcium 9.4 mg/dL (8.7-10.4)
[2024-10-27 22:43] LABS: Blood Urea Nitrogen 18 mg/dL (9-23)
[2024-10-27 22:44] LABS: Glucose 317 mg/dL (74-106)
[2024-10-27] MEDS: ATORVASTATIN 20 MG TAB PO SCH (22:58)
[2024-10-27] MEDS: INSULIN LANTUS (GLARGINE) 1 /0.01ml (100units/ml) SC SCH (23:04)
[2024-10-27 23:31] LABS: BUN/Creatinine Ratio 14.6 (10.0-20.0)
[2024-10-27] MEDS ORDERED: AMLO1TAB22 PO (23:43)
[2024-10-28 01:00] VITALS: BP_SYST 142; BP_SYST 153; BP_DIAS 59; BP_DIAS 75; PULSE 55; RESP 19; TEMP 98; O2SAT 97
[2024-10-28 05:00] VITALS: BP 130/71; PULSE 57; RESP 20; TEMP 97.8; O2SAT 96
[2024-10-28 09:00] VITALS: BP 169/98; PULSE 61; RESP 20; TEMP 97.9; O2SAT 93
[2024-10-28] MEDS: FAMOTIDINE 20 MG TAB PO SCH (10:07)
[2024-10-28] MEDS: LOSARTAN POTASSIUM 25 MG TAB PO SCH (10:07)
[2024-10-28] MEDS: amLODIPine BESYLATE 5 MG TAB PO SCH (10:08)
[2024-10-28 13:00] VITALS: BP 176/100; PULSE 69; RESP 18; TEMP 98.3; O2SAT 96
[2024-10-28] MEDS: InsuLIN REG 1unit/0.01ml Soln (100units/ml) SC SCH (14:05)
[2024-10-28] MEDS: LOSARTAN POTASSIUM 25 MG TAB PO ONE (16:24)
[2024-10-28] MEDS ORDERED: hydroCHLOROthiazide 25 MG TAB PO ONE (16:30)
[2024-10-28 17:00] VITALS: BP 155/90; PULSE 77; RESP 20; TEMP 97.7; O2SAT 95
[2024-10-28 21:00] VITALS: BP 133/73; PULSE 68; RESP 18; TEMP 98.1; O2SAT 97
[2024-10-28] MEDS ORDERED: INSULIN LANTUS (GLARGINE) 1 /0.01ml (100units/ml) SC SCH (22:00)
[2024-10-28] MEDS: INSULIN LANTUS (GLARGINE) 1 /0.01ml (100units/ml) SC SCH (22:40)
[2024-10-28] MEDS: INSULIN LISPRO (HUMAN) 100 UNITS/ML ML SC ONE (23:15)
[2024-10-29 05:00] VITALS: BP 129/57; PULSE 56; RESP 17; TEMP 97.8; O2SAT 94
[2024-10-29 06:22] LABS: Basophils # (auto) 0.1 10 ^3/uL (0-0.2); Basophils % (auto) 0.7 % (0.0-2.0); Eosinophils # (auto) 0.2 10 ^3/uL (0-0.8); Eosinophils % (auto) 2.5 % (0.0-7.0); Hematocrit 43.1 % (41.0-53.0); Hemoglobin 14.7 g/dL (13.5-17.5); Lymphocytes % (auto) 24.3 % (10.0-50.0); Mean Corpuscular Hemoglobin 28.5 pg (28.0-32.0); Mean Corpuscular Volume 83.7 fL (80.0-100.0); Monocytes # (auto) 0.7 10 ^3/uL (0-1.3); Monocytes % (auto) 8.9 % (0.0-12.0); Neutrophils # (auto) 5.3 10 ^3/uL (1.6-8.6); Neutrophils % (auto) 63.6 % (37.0-80.0); Nucleated Red Blood Cells % 0.1 %; Platelet Count (auto) 242 10^3/uL (140-450); Red Blood Cells 5.14 10^6/uL (4.5-5.90); Red Cell Distribution Width 14.3 % (11.8-14.3); White Blood Cell 8.3 10^3/uL (4.4-10.8)
[2024-10-29 06:38] LABS: Chloride 105 mmol/L (98-107); Potassium 3.8 mmol/L (3.5-5.1); Sodium 137 mmol/L (136-145)
[2024-10-29 06:39] LABS: Anion Gap 9 (5-15); Calcium 9.7 mg/dL (8.7-10.4); Carbon Dioxide 23 mmol/L (20-31)
[2024-10-29 06:44] LABS: BUN/Creatinine Ratio 10.8 (10.0-20.0); Blood Urea Nitrogen 10 mg/dL (9-23)
[2024-10-29 06:47] LABS: Glucose 222 mg/dL (74-106)
[2024-10-29 09:00] VITALS: BP 164/119; PULSE 71; RESP 17; TEMP 97.9; O2SAT 94
--- NOTE | 2024-10-29 09:00 | DVHPN2 ---
Assessment/Plan Assessment/Plan Progress note Subjective 54 yo M admitted for new onset diabetes. adjusted insulin basal and started on metforimn. adjusted BP meds Objective Physical exam Alert, oriented x3 Obese PERRLA No JVD Clear breath sounds bilaterally S1-S2 regular rate and rhythm no murmur Abdomen soft nontender, no organomegaly Moving all four extremities No lower extremity edema Lab hyperglycemia ketonuria low bicarb elevated anion gap normal pH A1C 10 hyperlipidemia high potassium EKG NSR Imaging CTAP with diverticulitis Assessment and plan Not in DKA New onset DM likely type 2 Metabolic syndrome Obesity Hypertension Starvation ketosis hyperkalemia resolved start insulin basal bolus start high intensity statin, high ASCVD score resume amlodipine, start ARB avoid IV 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, 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, po meds on discharge will need pulm referral for sleep study on discharge Replete electrolytes Diet diabetic DVT prophylaxis ambulatory 15 minutes spent with education regarding lifestyle modification Plan discussed with: Patient My Orders Orders - IMMANUEL GHOTRA MD Procedure Category Date Status Time *Rn Hotel Service Manager REFER 10/28/24 Transmitted Referral 12:43 Insulin Lantus PHA 10/28/24 In Process (Glargine) (Lantus) 22:00 Losartan Tablet PHA 10/29/24 In Process (Cozaar Tablet) 10:00 Hydrochlorothiazide PHA 10/29/24 In Process Tablet (Hydrochlorot 10:00 Metformin PHA 10/29/24 Logged Hydrochloride 08:45 Date of Service: Oct 28, 2024 Billing Provider: IMMANUEL GHOTRA MD Common Visit Codes: [id number] INP/OBS CARE(HIGH) IMMANUEL GHOTRA MD Oct 29, 2024 09:00
[2024-10-29] MEDS ORDERED: AMLO1TAB23 PO (09:09)
[2024-10-29] MEDS ORDERED: ATOR40TA52 PO (09:09)
[2024-10-29] MEDS ORDERED: INSU1.2I SC (09:09)
[2024-10-29] MEDS ORDERED: FAMO-12 PO (09:09)
[2024-10-29] MEDS ORDERED: LANC-347 XX (09:09)
[2024-10-29] MEDS ORDERED: METF-370 PO (09:09)
[2024-10-29] MEDS ORDERED: BLOOMIS92 XX (09:09)
[2024-10-29] MEDS ORDERED: LOSA-533 PO (09:09)
[2024-10-29] MEDS ORDERED: HYDR12.59 PO (09:09)
--- NOTE | 2024-10-29 09:21 | DVHDS2 ---
Discharge Summary Date of Admission Oct 26, 2024 at 16:23 Date of Discharge: Oct 29, 2024 Labs/Diagnostic Data: Laboratory Results Test 10/29/24 05:50 10/29/24 05:46 10/27/24 03:18 10/26/24 16:08 POC Glucose 228 mg/dl (70-106) White Blood Count 8.3 10^3/uL (4.4-10.8) Red Blood Count 5.14 10^6/uL (4.5-5.90) Hemoglobin 14.7 g/dL (13.5-17.5) Hematocrit 43.1 % (41.0-53.0) Mean Corpuscular Volume 83.7 fL (80.0-100.0) Mean Corpuscular Hemoglobin 28.5 pg (28.0-32.0) Mean Corpuscular Hemoglobin Concent 34.0 g/dL (32.0-36.0) Red Cell Distribution Width 14.3 % (11.8-14.3) Platelet Count 242 10^3/uL (140-450) Mean Platelet Volume 8.4 fL (6.9-10.8) Neutrophils (%) (Auto) 63.6 % (37.0-80.0) Lymphocytes (%) (Auto) 24.3 % (10.0-50.0) Monocytes (%) (Auto) 8.9 % (0.0-12.0) Eosinophils (%) (Auto) 2.5 % (0.0-7.0) Basophils (%) (Auto) 0.7 % (0.0-2.0) Neutrophils # (Auto) 5.3 10 ^3/uL (1.6-8.6) Lymphocytes # (Auto) 2.0 10 ^3/uL (0.4-5.4) Monocytes # (Auto) 0.7 10 ^3/uL (0-1.3) Eosinophils # (Auto) 0.2 10 ^3/uL (0-0.8) Basophils # (Auto) 0.1 10 ^3/uL (0-0.2) Nucleated Red Blood Cells 0.1 % Sodium Level 137 mmol/L (136-145) Potassium Level 3.8 mmol/L (3.5-5.1) Chloride Level 105 mmol/L (98-107) Carbon Dioxide Level 23 mmol/L (20-31) Anion Gap 9 (5-15) Blood Urea Nitrogen 10 mg/dL (9-23) Creatinine 0.93 mg/dL (0.700-1.30) Glomerular Filtration Rate Calc 96 mL/min (>90) BUN/Creatinine Ratio 10.8 (10.0-20.0) Serum Glucose 222 mg/dL (74-106) Calcium Level 9.7 mg/dL (8.7-10.4) Hemoglobin A1c 10.6 % A1C (<5.7) Triglycerides Level 169 mg/dL (< 150) Cholesterol Level 217 mg/dL (< 200) LDL Cholesterol 161 mg/dL (< 100) HDL Cholesterol 36 mg/dL (40-59) Serum Osmolality 304 mOsm/kg (278-298) Phosphorus Level 3.2 mg/dL (2.4-5.1) Magnesium Level 2.0 mg/dL (1.6-2.6) Beta-Hydroxybutyric Acid 3.441 mmol/L (< 0.4) Test 10/26/24 14:10 10/26/24 12:52 10/26/24 12:42 Urine Color Light-yellow (Yellow) Urine Clarity Clear (Clear) Urine pH 5.0 (5.0-9.0) Urine Specific [place] 1.033 (1.001-1.035) Urine Protein 1+ (Negative) Urine Ketones 3+ (Negative) Urine Blood Trace /uL (Negative) Urine Nitrite Negative (Negative) Urine Bilirubin Negative (Negative) Urine Urobilinogen Normal mg/dL (Negative) Urine Leukocyte Esterase Negative /uL (Negative) Urine RBC <1 /hpf (0 - 3) Urine WBC 1 /hpf (0 - 3) Urine Squamous Epithelial Cells None seen /hpf (<5) Urine Bacteria None seen /hpf (None Seen) Urine Hyaline Casts Few /lpf (0 - 2) Urine Glucose 4+ mg/dL (Normal) Urine Opiates Screen Neg (NEGATIVE) Urine Fentanyl Screen Neg (NEGATIVE) Urine Barbiturates Screen Neg (NEGATIVE) Urine Phencyclidine Screen Neg (NEGATIVE) Urine Amphetamines Screen Neg (NEGATIVE) Urine Benzodiazepines Screen Neg (NEGATIVE) Urine Cocaine Screen Neg (NEGATIVE) Urine Cannabinoids Screen Pos (NEGATIVE) Lactic Acid Level 1.8 mmol/L (0.4-2.0) Total Bilirubin 0.8 mg/dL (0.2-1.0) Aspartate Amino Transferase (AST) 19 U/L (13-40) Alanine Aminotransferase (ALT) 36 U/L (7-40) Alkaline Phosphatase 98 U/L (46-116) Troponin I High Sensitivity 8 ng/L (</=54) Total Protein 7.6 g/dL (5.7-8.2) Albumin 5.0 g/dL (3.2-4.8) Lipase 39 U/L (12-53) Blood Gas Specimen Type Arterial Blood Gas Sample Site Right radial Blood Gas Patient Temperature 37.0 Arterial Blood Date Drawn [id number] Arterial Blood pH 7.388 (7.350-7.450) Arterial Blood Partial Pressure CO2 22.3 mmHg (35.0-48.0) Arterial Blood Partial Pressure O2 86.9 mmHg (83.0-108.0) Arterial Blood HCO3 13.1 mmol/L (21.0-28.0) Arterial Blood Oxygen Saturation 96.4 % (94.0-98.0) Arterial Blood Base Excess -9.1 mmol/L (-2.0-3.0) Arterial Blood Oxyhemoglobin 95.5 % (94.0-98.0) Arterial Blood Carboxyhemoglobin 0.3 % (0.5-1.5) Arterial Blood Methemoglobin 0.6 % (0.0-1.5) Heath Test Yes Blood Gas Total Hemoglobin 17.70 g/dL (13.5-17.5) Blood Gas Modality Room air FiO2 % 21.0 Other Laboratory Tests 10/29/24 05:46 Brief Hx & Hospital Course: 54 yo M with HTN admitted for new onset DM. found to have elevated blood glucose, no acidosis on blood gas, ketones likely from catabolic process, pt had polyuria, polydipsia and polyphagia. A1c 10. Started on lantus with units escalated from 15 to 25. Also significant for uncontrolled HTN, added home amlodipine, adjusted dose, started on losartan and hctz. Will be discharged with glucometer, DC clinic 1 week for BMP, logbook at home and referral to pulm for sleep study. Condition at Discharge: Good Final Diagnosis/Problems List Not in DKA New onset DM likely type 2 Metabolic syndrome Obesity Hypertension Starvation ketosis hyperkalemia resolved Discharge Disposition: Home Discharge Instruct/Medications Diet: Cardiac 2g Na,low cholest Activity: No Restrictions, As Tolerated Follow Up/Referral: follow up with discharge clinic for BMP and log book check Medications: insulin glargine 25 units nightly metformin 500mg twice daily hydrochlorothiazide 12.5mg daily amlodipine 10mg daily losartan 25mg daily atorvastatin 40mg daily 39 Discharge Statement: "Patient was advised to return to the ER or call 911 if any headaches, dizziness, shortness of breath, chest pain, abdominal pain, bleeding, fevers, or worsening of medical condition. Patient was counseled about treatment plan, medications, possible side effects, patientverbalized understanding. All questions were answered to the best of my ability. This discharge took greater then 30 minutes in planning, reviewing documentation, counseling the patient, and discussing with other team members." ASSESSMENT ASSESSMENT Assessment Not in DKA New onset DM likely type 2 Metabolic syndrome Obesity Hypertension Starvation ketosis hyperkalemia resolved Date of Service: Oct 29, 2024 Billing Provider: IMMANUEL GHOTRA MD Common Visit Codes: [id number]/OBS DISCH DAY >30min IMMANUEL GHOTRA MD Oct 29, 2024 09:21
[2024-10-29] MEDS: metFORMIN HYDROCHLORIDE 500 MG TAB PO SCH (09:26)
[2024-10-29] MEDS: LOSARTAN POTASSIUM 25 MG TAB PO SCH (09:43)
[2024-10-29] MEDS: hydroCHLOROthiazide 25 MG TAB PO SCH (09:44)
[2024-10-29 12:23] VITALS: BP 163/102; PULSE 63; RESP 18; TEMP 98.3; O2SAT 100
--- NOTE | 2024-10-29 21:49 | DVHPN2 ---
Assessment/Plan Assessment/Plan Please see discharge summary from 10/29/2024 Discharged with lantus 25 and metformin Plan discussed with: Patient My Orders Orders - IMMANUEL GHOTRA MD Procedure Category Date Status Time Discharge DISCHARGE 10/29/24 Transmitted 09:09 Date of Service: Oct 30, 2024 Billing Provider: IMMANUEL GHOTRA MD Common Visit Codes: 60076-RPL/OBS DISCH DAY >30min IMMANUEL GHOTRA MD Oct 29, 2024 21:48
== END 2024-10-29 13:35 | disposition home or self-care (01) | DRG 637 ==
LOC: ER 11:53 → OVERFLOW 16:23 → TELE-WESTW 10-27 20:45 → WEST WING 10-28 01:53
PROVIDERS: ADMIT Hospitalist; ATTEND Student in an Organized Health Care Education/Training Program
DX: E11.65 Type 2 diabetes mellitus with hyperglycemia (principal); N17.0 Acute kidney failure with tubular necrosis; I10 Essential (primary) hypertension; E88.810 Metabolic syndrome; E87.5 Hyperkalemia; E66.9 Obesity, unspecified; R63.1 Polydipsia; R63.2 Polyphagia; T73.0XXA Starvation, initial encounter; X58.XXXA Exposure to other specified factors, initial encounter; Z87.891 Personal history of nicotine dependence; Z68.33 Body mass index [BMI] 33.0-33.9, adult
CPT/HCPCS: 36415; 36600; 74176; 80048; 80053; 80061; 80307; 81001; 82010; 82805; 82962; 83036; 83605; 83690; 83735; 83930; 84100; 84484; 85025; 96374; 96375; 99291; G0378; J1815; J2405